=== PATIENT | female | born 1990 | race Caucasian/White ===

== ENCOUNTER 2017-05-18 07:16 | Inpatient (IN) | payer MEDICAID ==
[2017-05-18] MEDS ORDERED: Sodium Chloride 0.9% 10 ML Syringe FLUSH PRN (07:32)
[2017-05-18] MEDS ORDERED: Nalbuphine 20 MG/1 ML Amp IVPUSH PRN (07:32)
[2017-05-18] MEDS ORDERED: Ondansetron 4 MG/2 ML SDV IVPUSH PRN ×2 (07:32→15:31)
[2017-05-18] MEDS ORDERED: Ampicillin 2 GM in Sodium Chloride 0.9% 100 ML IV ONE (07:32)
--- NOTE | 2017-05-18 07:35 | PCM.LDHP ---
L&D History of Present Illness - General Date of Service: 05/18/17 Admit Problem/Dx: Patient Status Order with Admit Dx/Problem 05/18/17 07:33 Patient Status [ADT] Routine Admission Diagnosis/Problem Admission Diagnosis/Problem Normal Source of Information: Patient History Limitations: Reports: No Limitations - History of Present Illness Introduction:: Patient is 26 y/o who presents at 39 0/7 wks for IOL for dates. Doing well today. No specific concerns or complaints - Related Data Allergies/Adverse Reactions: Allergies Allergy/AdvReac Type Severity Reaction Status Date / Time No Known Allergies Allergy Verified 10/13/16 13:41 CDT Home Medications: Home Meds . 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 (Approximate): Social & Family History - Family History Family Medical History: Noncontributory - Tobacco Use Smoking Status *Q: Never Smoker - Caffeine Use Caffeine Use: Reports: None - Alcohol Use Alcohol Use History: No - Recreational Drug Use Recreational Drug Use: No H&P Review of Systems - Review of Systems: Review Of Systems: See Below General: Reports: No Symptoms Pulmonary: Reports: No Symptoms Cardiovascular: Reports: No Symptoms Gastrointestinal: Reports: No Symptoms Genitourinary: Reports: No Symptoms Musculoskeletal: Reports: No Symptoms Psychiatric: Reports: No Symptoms Neurological: Reports: No Symptoms L&D Exam - Exam Exam: See Below - OB Specific Contraction Intensity: Irritability Movement: Active Heart Tones: Present Heart Tones per Min: 140 Heart Rate (FHR) Variability: Moderate (6-25 bmp) Presentation: Vertex - Rose Score Rose Score Cervix Position: Posterior Rose Score Consistency: Soft Rose Score Effacement: 0-30% Rose Score Dilation: 1-2 cm Rose Score 's Station: -2 Rose Score Total: 4 - Exam General: Alert, Oriented, Cooperative Lungs: Clear to Auscultation, Normal Respiratory Effort Cardiovascular: Regular Rate, Regular Rhythm GI/Abdominal Exam: Soft, Non-Tender Genitourinary: Normal external exam Extremities: Normal Inspection Skin: Warm, Dry, Intact - Patient Data Result Diagrams: 05/18/17 07:51 - Problem List (1) 39 weeks gestation of SNOMED Code(s): 17373929 ICD Code: Z3A.39 - 39 WEEKS GESTATION OF Status: Acute Current Visit: Yes (2) GBS bacteriuria SNOMED Code(s): 73593859 ICD Code: R82.71 - BACTERIURIA Status: Acute Current Visit: Yes Problem List Initiated/Reviewed/Updated: Yes Orders Last 24hrs: Active Orders 24 hr Category Date Time Status Patient Status [ADT] Routine ADT 05/18/17 07:33 Ordered Communication Order [RC] ASDIRECTED Care 05/18/17 07:32 Ordered Communication Order [RC] ASDIRECTED Care 05/18/17 07:32 Ordered Communication Order [RC] ASDIRECTED Care 05/18/17 07:32 Ordered Heart Tones [RC] ASDIRECTED Care 05/18/17 07:33 Ordered Monitoring [RC] INTERMITTENT Care 05/18/17 07:32 Ordered Notify Provider [RC] ASDIRECTED Care 05/18/17 07:32 Ordered Notify Provider [RC] PRN Care 05/18/17 07:32 Ordered Peripheral IV Care [RC] . DIRECTED Care 05/18/17 07:33 Ordered Up ad Екатерина [RC] ASDIRECTED Care 05/18/17 07:33 Ordered Vaginal Exam [RC] ASDIRECTED Care 05/18/17 07:32 Ordered Vital Signs [RC] ASDIRECTED Care 05/18/17 07:32 Ordered Vital Signs [RC] PER UNIT ROUTINE Care 05/18/17 07:32 Ordered Regular Diet [DIET] Diet 05/18/17 Breakfast Ordered CBC W/O DIFF,HEMOGRAM [HEME] Routine Lab 05/18/17 07:32 Ordered TYPE AND SCREEN [BBK] Routine Lab 05/18/17 07:32 Ordered Ampicillin 1 gm Med 05/18/17 07:45 Ordered Sodium Chloride 0.9% [Normal Saline] 100 ml IV Q4H Ampicillin 2 gm Med 05/18/17 07:32 Ordered Sodium Chloride 0.9% [Normal Saline] 100 ml IV ONETIME Lactated Ringers [Ringers, Lactated] 1,000 ml Med 05/18/17 07:45 Ordered IV ASDIRECTED Nalbuphine [Nubain] Med 05/18/17 07:32 Ordered 10 mg IVPUSH Q2H PRN Ondansetron [Zofran] Med 05/18/17 07:32 Ordered 4 mg IVPUSH Q4H PRN Oxytocin/Lactated Ringers [Pitocin in LR 10 Units/1,000 Med 05/18/17 07:45 Ordered ML] 10 unit in 1,000 ml IV .CONTINUOUS Oxytocin/Lactated Ringers [Pitocin in LR 10 Units/1,000 Med 05/18/17 07:45 Ordered ML] 10 unit in 1,000 ml IV TITRATE Sodium Chloride 0.9% [Saline Flush] Med 05/18/17 07:32 Ordered 10 ml FLUSH ASDIRECTED PRN Electronic Heart Tones Ext w TOCO [WOMSER] Oth 05/18/17 07:32 Ordered Routine Electronic Heart Tones Internal [WOMSER] Per Unit Ot 05/18/17 07:32 Ordered Routine Peripheral IV Insertion Adult [OM.PC] Routine Ot 05/18/17 07:32 Ordered Resuscitation Status Routine Resus Stat 05/18/17 07:32 Ordered Assessment/Plan Comment:: Patient is a 26 y/o at 39 0/7 wks who presents for IOL given living 1.5 hours from hospital * CBC and T&S * GBS positive, will start Ampicillin * Pitocin for IOL with AROM when able * Pain management per patient preference * Anticipate
[2017-05-18] MEDS ORDERED: Oxytocin/Lactated Ringers 10 UNIT/1,000 ML BAG IV SCH ×2 (07:45)
[2017-05-18] MEDS: Lactated Ringers 1,000 ML IV SCH ×4 (08:20→19:46)
[2017-05-18] MEDS: Ampicillin 1 GM in Sodium Chloride 0.9% 100 ML IV SCH ×3 (11:45→19:33)
--- NOTE | 2017-05-18 15:30 | PCM.PREANE ---
Preanesthetic Assessment - Procedure Proposed Procedure: YOSHI - Anesthesia/Transfusion/Family Hx Anesthesia History: Prior Anesthesia Without Reaction Family History of Anesthesia Reaction: No Transfusion History: No Prior Transfusion(s) - Review of Systems General: No Symptoms Pulmonary: No Symptoms Cardiovascular: No Symptoms Gastrointestinal: No Symptoms Neurological: No Symptoms Other: Reports: None - Physical Assessment NPO Status Date: 05/18/17 NPO Status Time: 13:00 O2 Sat by Pulse Oximetry: 100 Respiratory Rate: 15 Vital Signs: Last Vital Signs Temp 36.1 C 05/18/17 07:32 Pulse 81 05/18/17 07:32 Resp 15 05/18/17 07:32 BP 116/69 05/18/17 07:32 Pulse Ox 100 05/18/17 07:32 Height: 1.6 m Weight: 72.529 kg ASA Class: 2 Mental Status: Alert & Oriented x3 Airway Class: Mallampati = 1 Dentition: Reports: Normal Dentition Thyro-Mental Finger Breadths: 3 Mouth Opening Finger Breadths: 3 ROM/Head Extension: Full Lungs: Clear to Auscultation, Normal Respiratory Effort Cardiovascular: Regular Rate, Regular Rhythm - Lab Values: Laboratory Last Values WBC 6.50 K/mm3 (3.98-10.04) 05/18/17 07:51 RBC 4.02 M/mm3 (3.98-5.22) 05/18/17 07:51 Hgb 11.2 gm/L (11.2-15.7) 05/18/17 07:51 Hct 34.0 % (34.1-44.9) L 05/18/17 07:51 MCV 84.6 fl (79.4-94.8) 05/18/17 07:51 MCH 27.9 pg (25.6-32.2) 05/18/17 07:51 MCHC 32.9 g/dl (32.2-35.5) 05/18/17 07:51 RDW Std Deviation 49.3 fL (36.4-46.3) H 05/18/17 07:51 Plt Count 165 K/mm3 (182-369) L 05/18/17 07:51 MPV 11.1 fl (9.4-12.3) 05/18/17 07:51 Blood Type B POSITIVE 05/18/17 07:51 Gel Antibody Screen Negative 05/18/17 07:51 - Allergies Allergies/Adverse Reactions: Allergies Allergy/AdvReac Type Severity Reaction Status Date / Time No Known Allergies Allergy Verified 10/13/16 13:41 CDT - Blood Blood Available: No Product(s) Available: None - Anesthesia Plan Pre-Op Medication Ordered: None - Acknowledgements Anesthesia Type Planned: Epidural Pt an Appropriate Candidate for the Planned Anesthesia: Yes Alternatives and Risks of Anesthesia Discussed w Pt/Guardian: Yes Pt/Guardian Understands and Agrees with Anesthesia Plan: Yes PreAnesthesia Questionnaire - Past Health History Medical/Surgical History: Denies 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 [No Known Home Meds] 10/13/16 [History] - CURRENT (IN HOUSE) MEDS Current Meds: Current Medications Ampicillin Sodium 1 gm/ Sodium (Chloride) 100 mls @ 200 mls/hr IV Q4H ISRA Last Admin: 05/18/17 15:25 Dose: 200 mls/hr Lactated Ringer's (Ringers, Lactated) 1,000 mls @ 40 mls/hr IV ASDIRECTED ISRA Last Admin: 05/18/17 15:27 Dose: 40 mls/hr Oxytocin/Lactated Ringer's (Pitocin In Lr 10 Units/1,000 Ml) 10 unit in 1,000 mls @ 12 mls/hr IV TITRATE ISRA; 2 MUNITS/MIN PRN Reason: Protocol Last Titration: 05/18/17 15:04 Dose: 6 munits/min, 36 mls/hr Oxytocin/Lactated Ringer's (Pitocin In Lr 10 Units/1,000 Ml) 10 unit in 1,000 mls @ 500 mls/hr IV .CONTINUOUS ISRA Nalbuphine HCl (Nubain) 10 mg IVPUSH Q2H PRN PRN Reason: Pain (moderate 4-6) Ondansetron HCl (Zofran) 4 mg IVPUSH Q4H PRN PRN Reason: Nausea/Vomiting Sodium Chloride (Saline Flush) 10 ml FLUSH ASDIRECTED PRN PRN Reason: Keep Vein Open Discontinued Medications Ampicillin Sodium 2 gm/ Sodium (Chloride) 100 mls @ 200 mls/hr IV ONETIME ONE Stop: 05/18/17 08:01 Last Admin: 05/18/17 08:21 Dose: 200 mls/hr
[2017-05-18] MEDS ORDERED: fentaNYL 100 MCG/2 ML SDV EPIDUR PRN (15:31)
[2017-05-18] MEDS ORDERED: ePHEDrine 50 MG/ML SDV IVPUSH PRN (15:31)
[2017-05-18] MEDS ORDERED: diphenhydrAMINE 50 MG/ML SDV IVPUSH PRN (15:31)
[2017-05-18] MEDS ORDERED: Bupivacaine/fentaNYL/NS 100 ML Bag EPIDUR SCH (15:45)
--- NOTE | 2017-05-18 19:15 | PCM.PNLD ---
Labor Progress Note - VS & Meds Vital Signs: Last Vital Signs Temp 36.1 C 05/18/17 07:32 Pulse 81 05/18/17 07:32 Resp 15 05/18/17 15:30 BP 116/69 05/18/17 07:32 Pulse Ox 100 05/18/17 15:30 Active Medications: Current Medications Diphenhydramine HCl (Benadryl) 25 mg IVPUSH Q6H PRN PRN Reason: Pruritis Ephedrine Sulfate (Ephedrine Sulfate) 5 mg IVPUSH ASDIRECTED PRN PRN Reason: Hypotension Fentanyl (Sublimaze) 100 mcg EPIDUR Q3H PRN PRN Reason: Pain Last Admin: 05/18/17 16:32 Dose: 100 mcg Fentanyl/Bupivacaine HCl (Fentanyl/Bupivacaine/Ns 2 Mcg-0.125% 100 Ml) 100 ml EPIDUR ASDIRECTED ISRA Last Admin: 05/18/17 16:33 Dose: 100 ml Ampicillin Sodium 1 gm/ Sodium (Chloride) 100 mls @ 200 mls/hr IV Q4H ISRA Last Admin: 05/18/17 15:25 Dose: 200 mls/hr Lactated Ringer's (Ringers, Lactated) 1,000 mls @ 40 mls/hr IV ASDIRECTED ISRA Last Admin: 05/18/17 17:03 Dose: 40 mls/hr Oxytocin/Lactated Ringer's (Pitocin In Lr 10 Units/1,000 Ml) 10 unit in 1,000 mls @ 12 mls/hr IV TITRATE ISRA; 2 MUNITS/MIN PRN Reason: Protocol Last Titration: 05/18/17 16:40 Dose: 2 munits/min, 12 mls/hr Oxytocin/Lactated Ringer's (Pitocin In Lr 10 Units/1,000 Ml) 10 unit in 1,000 mls @ 500 mls/hr IV .CONTINUOUS ISRA Nalbuphine HCl (Nubain) 10 mg IVPUSH Q2H PRN PRN Reason: Pain (moderate 4-6) Ondansetron HCl (Zofran) 4 mg IVPUSH Q4H PRN PRN Reason: Nausea/Vomiting Ondansetron HCl (Zofran) 4 mg IVPUSH ONETIME PRN PRN Reason: Nausea/Vomiting Sodium Chloride (Saline Flush) 10 ml FLUSH ASDIRECTED PRN PRN Reason: Keep Vein Open Discontinued Medications Ampicillin Sodium 2 gm/ Sodium (Chloride) 100 mls @ 200 mls/hr IV ONETIME ONE Stop: 05/18/17 08:01 Last Admin: 05/18/17 08:21 Dose: 200 mls/hr - Uterine Contractions Uterine Monitoring Mode: External [place] Contraction Intensity: Mild - Monitoring Monitor Mode: External Ultrasound Heart Rate (FHR) Baseline: 140 Heart Rate (FHR) Variability: Moderate (6-25 bmp) Accelerations: Present, 15x15 Decelerations: None Strip Review: Category I - Vaginal Exam Dilation (cm): 2 Effacement (Percent): 25 Station: -1 Cervical Position: Posterior - Labor Progress (Free Text) Labor Progress: Doing well. On 6 of pitocin. AROM performed with release of large amount of clear fluid. Continue present management.
--- NOTE | 2017-05-18 19:18 | PCM.PNLD ---
Labor Progress Note - VS & Meds Vital Signs: Last Vital Signs Temp 36.1 C 05/18/17 07:32 Pulse 81 05/18/17 07:32 Resp 15 05/18/17 15:30 BP 116/69 05/18/17 07:32 Pulse Ox 100 05/18/17 15:30 Active Medications: Current Medications Diphenhydramine HCl (Benadryl) 25 mg IVPUSH Q6H PRN PRN Reason: Pruritis Ephedrine Sulfate (Ephedrine Sulfate) 5 mg IVPUSH ASDIRECTED PRN PRN Reason: Hypotension Fentanyl (Sublimaze) 100 mcg EPIDUR Q3H PRN PRN Reason: Pain Last Admin: 05/18/17 16:32 Dose: 100 mcg Fentanyl/Bupivacaine HCl (Fentanyl/Bupivacaine/Ns 2 Mcg-0.125% 100 Ml) 100 ml EPIDUR ASDIRECTED ISRA Last Admin: 05/18/17 16:33 Dose: 100 ml Ampicillin Sodium 1 gm/ Sodium (Chloride) 100 mls @ 200 mls/hr IV Q4H ISRA Last Admin: 05/18/17 15:25 Dose: 200 mls/hr Lactated Ringer's (Ringers, Lactated) 1,000 mls @ 40 mls/hr IV ASDIRECTED ISRA Last Admin: 05/18/17 17:03 Dose: 40 mls/hr Oxytocin/Lactated Ringer's (Pitocin In Lr 10 Units/1,000 Ml) 10 unit in 1,000 mls @ 12 mls/hr IV TITRATE ISRA; 2 MUNITS/MIN PRN Reason: Protocol Last Titration: 05/18/17 16:40 Dose: 2 munits/min, 12 mls/hr Oxytocin/Lactated Ringer's (Pitocin In Lr 10 Units/1,000 Ml) 10 unit in 1,000 mls @ 500 mls/hr IV .CONTINUOUS ISRA Nalbuphine HCl (Nubain) 10 mg IVPUSH Q2H PRN PRN Reason: Pain (moderate 4-6) Ondansetron HCl (Zofran) 4 mg IVPUSH Q4H PRN PRN Reason: Nausea/Vomiting Ondansetron HCl (Zofran) 4 mg IVPUSH ONETIME PRN PRN Reason: Nausea/Vomiting Sodium Chloride (Saline Flush) 10 ml FLUSH ASDIRECTED PRN PRN Reason: Keep Vein Open Discontinued Medications Ampicillin Sodium 2 gm/ Sodium (Chloride) 100 mls @ 200 mls/hr IV ONETIME ONE Stop: 05/18/17 08:01 Last Admin: 05/18/17 08:21 Dose: 200 mls/hr - Uterine Contractions Uterine Monitoring Mode: External [place] Contraction Intensity: Mild - Monitoring Monitor Mode: External Ultrasound Heart Rate (FHR) Baseline: 140 Heart Rate (FHR) Variability: Moderate (6-25 bmp) Accelerations: Absent Decelerations: Variable Strip Review: Category II - Vaginal Exam Dilation (cm): 3-4 Effacement (Percent): 75 Vaginal Exam Comment: Done by nursing at 1600 - Labor Progress (Free Text) Labor Progress: Doing well. Comfortable with epidural in place. Will have nursing decrease pitocin to 2 given present of some variables
--- NOTE | 2017-05-18 19:20 | PCM.PNLD ---
Labor Progress Note - VS & Meds Vital Signs: Last Vital Signs Temp 36.1 C 05/18/17 07:32 Pulse 81 05/18/17 07:32 Resp 15 05/18/17 15:30 BP 116/69 05/18/17 07:32 Pulse Ox 100 05/18/17 15:30 Active Medications: Current Medications Diphenhydramine HCl (Benadryl) 25 mg IVPUSH Q6H PRN PRN Reason: Pruritis Ephedrine Sulfate (Ephedrine Sulfate) 5 mg IVPUSH ASDIRECTED PRN PRN Reason: Hypotension Fentanyl (Sublimaze) 100 mcg EPIDUR Q3H PRN PRN Reason: Pain Last Admin: 05/18/17 16:32 Dose: 100 mcg Fentanyl/Bupivacaine HCl (Fentanyl/Bupivacaine/Ns 2 Mcg-0.125% 100 Ml) 100 ml EPIDUR ASDIRECTED ISRA Last Admin: 05/18/17 16:33 Dose: 100 ml Ampicillin Sodium 1 gm/ Sodium (Chloride) 100 mls @ 200 mls/hr IV Q4H ISRA Last Admin: 05/18/17 15:25 Dose: 200 mls/hr Lactated Ringer's (Ringers, Lactated) 1,000 mls @ 40 mls/hr IV ASDIRECTED ISRA Last Admin: 05/18/17 17:03 Dose: 40 mls/hr Oxytocin/Lactated Ringer's (Pitocin In Lr 10 Units/1,000 Ml) 10 unit in 1,000 mls @ 12 mls/hr IV TITRATE ISRA; 2 MUNITS/MIN PRN Reason: Protocol Last Titration: 05/18/17 16:40 Dose: 2 munits/min, 12 mls/hr Oxytocin/Lactated Ringer's (Pitocin In Lr 10 Units/1,000 Ml) 10 unit in 1,000 mls @ 500 mls/hr IV .CONTINUOUS ISRA Nalbuphine HCl (Nubain) 10 mg IVPUSH Q2H PRN PRN Reason: Pain (moderate 4-6) Ondansetron HCl (Zofran) 4 mg IVPUSH Q4H PRN PRN Reason: Nausea/Vomiting Ondansetron HCl (Zofran) 4 mg IVPUSH ONETIME PRN PRN Reason: Nausea/Vomiting Sodium Chloride (Saline Flush) 10 ml FLUSH ASDIRECTED PRN PRN Reason: Keep Vein Open Discontinued Medications Ampicillin Sodium 2 gm/ Sodium (Chloride) 100 mls @ 200 mls/hr IV ONETIME ONE Stop: 05/18/17 08:01 Last Admin: 05/18/17 08:21 Dose: 200 mls/hr - Uterine Contractions Uterine Monitoring Mode: External [place] Contraction Intensity: Moderate to Strong - Monitoring Monitor Mode: External Ultrasound Heart Rate (FHR) Baseline: 135 Heart Rate (FHR) Variability: Moderate (6-25 bmp) Accelerations: Absent Decelerations: Late, Variable, Intermittent (<50% x 20 min) Strip Review: Category II - Vaginal Exam Dilation (cm): 6 Effacement (Percent): 80 Station: 0 Cervical Position: Anterior - Labor Progress (Free Text) Labor Progress: Patient with a run of what appear to be late decelerations although difficult to say given contractions not easily appreciated. Ordered pitocin to be stopped. (only at 2). IUPC placed. Patient 6 cm and with good bloody show. Will continue to monitor closely. Anticipate
--- NOTE | 2017-05-18 21:46 | PCM.DEL ---
L & D Note - General Info Date of Service: 05/18/17 - Delivery Note Labor: Induced by ARM, Induced by Oxytocin Delivery Outcome: Livebirth Infant Delivery Method: Spontaneous Vaginal Delivery-Single Infant Delivery Mode: Spontaneous Presentation: Left Occiput Anterior (MEL) Nuchal Cord: Present, Reduced Anesthesia Type: Epidural Amniotic Fluid Description: Meconium Stained (Note noted until after delivery of head) Episiotomy Type: None Laceration: None Placenta: Intact, Spontaneous Cord: 3 Vessels Estimated Blood Loss: 200 Resuscitation Needed: Yes [place]: Suctioned, Bulb Syringe, Stimulated, Warmed, [place] Used Score 1 min: 8 Score 5 min: 9 Delivery Comments (Free Text/Narrative):: Patient found to be complete and began pushing. With maternal pushing effort head delivered from an MEL presentation. Tight nuchal cord present and reduced. With gentle downward traction the shoulders and body delivered. placed on maternal abdomen. Cord clamped and cut. Cord blood obtained. Placenta allowed time to separate and expelled intact. Inspection of the perineum showed no lacerations - Patient Data Vitals - Most Recent: Last Vital Signs Temp 36.1 C 05/18/17 07:32 Pulse 81 05/18/17 07:32 Resp 15 05/18/17 15:30 BP 116/69 05/18/17 07:32 Pulse Ox 100 05/18/17 15:30 Weight - Most Recent: 72.529 kg I&O - Last 24 Hours: Intake & Output 05/18/17 05/18/17 05/18/17 06:59 14:59 22:59 Intake Total 3300 Balance 3300 Lab Results Last 24 Hours: Laboratory Results - last 24 hr 05/18/17 05/18/17 Range/Units 07:51 07:51 WBC 6.50 (3.98-10.04) K/mm3 RBC 4.02 (3.98-5.22) M/mm3 Hgb 11.2 (11.2-15.7) gm/L Hct 34.0 L (34.1-44.9) % MCV 84.6 (79.4-94.8) fl MCH 27.9 (25.6-32.2) pg MCHC 32.9 (32.2-35.5) g/dl RDW Std Deviation 49.3 H (36.4-46.3) fL Plt Count 165 L (182-369) K/mm3 MPV 11.1 (9.4-12.3) fl Blood Type B POSITIVE Gel Antibody Screen Negative Med Orders - Current: Current Medications Diphenhydramine HCl (Benadryl) 25 mg IVPUSH Q6H PRN PRN Reason: Pruritis Ephedrine Sulfate (Ephedrine Sulfate) 5 mg IVPUSH ASDIRECTED PRN PRN Reason: Hypotension Fentanyl (Sublimaze) 100 mcg EPIDUR Q3H PRN PRN Reason: Pain Last Admin: 05/18/17 16:32 Dose: 100 mcg Fentanyl/Bupivacaine HCl (Fentanyl/Bupivacaine/Ns 2 Mcg-0.125% 100 Ml) 100 ml EPIDUR ASDIRECTED ISRA Last Admin: 05/18/17 16:33 Dose: 100 ml Ampicillin Sodium 1 gm/ Sodium (Chloride) 100 mls @ 200 mls/hr IV Q4H ISRA Last Admin: 05/18/17 19:33 Dose: 200 mls/hr Lactated Ringer's (Ringers, Lactated) 1,000 mls @ 40 mls/hr IV ASDIRECTED ISRA Last Admin: 05/18/17 19:46 Dose: 40 mls/hr Oxytocin/Lactated Ringer's (Pitocin In Lr 10 Units/1,000 Ml) 10 unit in 1,000 mls @ 12 mls/hr IV TITRATE ISRA; 2 MUNITS/MIN PRN Reason: Protocol Last Titration: 05/18/17 19:01 Dose: 0 munits/min, 0 mls/hr Oxytocin/Lactated Ringer's (Pitocin In Lr 10 Units/1,000 Ml) 10 unit in 1,000 mls @ 500 mls/hr IV .CONTINUOUS ISRA Nalbuphine HCl (Nubain) 10 mg IVPUSH Q2H PRN PRN Reason: Pain (moderate 4-6) Ondansetron HCl (Zofran) 4 mg IVPUSH Q4H PRN PRN Reason: Nausea/Vomiting Ondansetron HCl (Zofran) 4 mg IVPUSH ONETIME PRN PRN Reason: Nausea/Vomiting Sodium Chloride (Saline Flush) 10 ml FLUSH ASDIRECTED PRN PRN Reason: Keep Vein Open Discontinued Medications Ampicillin Sodium 2 gm/ Sodium (Chloride) 100 mls @ 200 mls/hr IV ONETIME ONE Stop: 05/18/17 08:01 Last Admin: 05/18/17 08:21 Dose: 200 mls/hr - Problem List & Annotations (1) 39 weeks gestation of SNOMED Code(s): 79300055 Code(s): Z3A.39 - 39 WEEKS GESTATION OF Status: Acute Current Visit: Yes (2) GBS bacteriuria SNOMED Code(s): 83245898 Code(s): R82.71 - BACTERIURIA Status: Acute Current Visit: Yes (3) Vaginal delivery SNOMED Code(s): 571933001 Code(s): O80 - ENCOUNTER FOR FULL-TERM UNCOMPLICATED DELIVERY Status: Acute Current Visit: Yes - Problem List Review Problem List Initiated/Reviewed/Updated: Yes - My Orders Last 24 Hours: My Active Orders 05/18/17 07:32 Communication Order [RC] ASDIRECTED Communication Order [RC] ASDIRECTED Communication Order [RC] ASDIRECTED Notify Provider [RC] ASDIRECTED Notify Provider [RC] PRN Vital Signs [RC] PER UNIT ROUTINE Nalbuphine [Nubain] 10 mg IVPUSH Q2H PRN Ondansetron [Zofran] 4 mg IVPUSH Q4H PRN Sodium Chloride 0.9% [Saline Flush] 10 ml FLUSH ASDIRECTED PRN Electronic Heart Tones Ext w TOCO [WOMSER] Routine Electronic Heart Tones Internal [WOMSER] Per Unit Routine Peripheral IV Insertion Adult [OM.PC] Routine Resuscitation Status Routine 05/18/17 07:33 Patient Status [ADT] Routine Up ad Екатерина [RC] ASDIRECTED 05/18/17 07:45 Lactated Ringers [Ringers, Lactated] 1,000 ml IV ASDIRECTED Oxytocin/Lactated Ringers [Pitocin in LR 10 Units/1,000 ML] 10 unit in 1,000 ml IV .CONTINUOUS Oxytocin/Lactated Ringers [Pitocin in LR 10 Units/1,000 ML] 10 unit in 1,000 ml IV TITRATE 05/18/17 11:30 Ampicillin 1 gm Sodium Chloride 0.9% [Normal Saline] 100 ml IV Q4H 05/18/17 21:41 Patient Status Manage Transfer [TRANSFER] Routine 05/18/17 Breakfast Regular Diet [DIET] - Assessment Assessment:: Patient is a 26 y/o G2 now P2002 PPD#0 from at 39 0/7 wks - Plan Plan:: * Routine cares * Encourage breast feeding * Discharge home in 1-2 days
[2017-05-18] MEDS ORDERED: Docusate Sodium 100 MG Cap PO PRN (22:19)
[2017-05-18] MEDS ORDERED: Lanolin 100% Cream 7 GM Tube TOP PRN (22:19)
[2017-05-18] MEDS ORDERED: Witch Hazel Medicated Pads 100/Jar TOP PRN (22:19)
[2017-05-18] MEDS ORDERED: Benzocaine/Menthol 20%-0.5% Spray 56 GM Canister TOP PRN (22:19)
[2017-05-18] MEDS ORDERED: Acetaminophen 325 MG Tab PO PRN (22:19)
[2017-05-18] MEDS ORDERED: Bupivacaine 0.25% 10 ML SDV ONE (22:22)
[2017-05-18] MEDS: Ibuprofen 600 MG Tab PO PRN (23:03)
--- NOTE | 2017-05-19 07:33 | PCM.PNPP ---
- General Info Date of Service: 05/19/17 Functional Status: Reports: Pain Controlled, Tolerating Diet, Ambulating, Urinating - Review of Systems General: Reports: No Symptoms Pulmonary: Reports: No Symptoms Cardiovascular: Reports: No Symptoms Gastrointestinal: Reports: No Symptoms Genitourinary: Reports: No Symptoms - Patient Data Vital Signs - Most Recent: Last Vital Signs Temp 36.2 C 05/19/17 03:27 Pulse 57 L 05/19/17 03:27 Resp 14 05/19/17 03:27 BP 114/71 05/19/17 03:27 Pulse Ox 98 05/19/17 03:27 Weight - Most Recent: 72.529 kg I&O - Last 24 Hours: Intake & Output 05/18/17 05/19/17 05/19/17 22:59 06:59 14:59 Intake Total 5300 Balance 5300 Lab Results - Last 24 Hours: Laboratory Results - last 24 hr 05/18/17 05/18/17 Range/Units 07:51 07:51 WBC 6.50 (3.98-10.04) K/mm3 RBC 4.02 (3.98-5.22) M/mm3 Hgb 11.2 (11.2-15.7) gm/L Hct 34.0 L (34.1-44.9) % MCV 84.6 (79.4-94.8) fl MCH 27.9 (25.6-32.2) pg MCHC 32.9 (32.2-35.5) g/dl RDW Std Deviation 49.3 H (36.4-46.3) fL Plt Count 165 L (182-369) K/mm3 MPV 11.1 (9.4-12.3) fl Blood Type B POSITIVE Gel Antibody Screen Negative Med Orders - Current: Current Medications Acetaminophen (Tylenol) 650 mg PO Q4H PRN PRN Reason: mild pain or fever Benzocaine/Menthol (Dermoplast Pain Relief [place]) 0 gm TOP ASDIRECTED PRN PRN Reason: Perineal Comfort Measure Docusate Sodium (Colace) 100 mg PO BID PRN PRN Reason: Constipation Emollient Ointment (Lansinoh Hpa) 0 gm TOP ASDIRECTED PRN PRN Reason: Sore Nipples Ibuprofen (Motrin) 600 mg PO Q6H PRN PRN Reason: Mild pain or fever Last Admin: 05/18/17 23:03 Dose: 600 mg Witch [place] (Tucks) 1 pad TOP ASDIRECTED PRN PRN Reason: Hemorrhoid pain Discontinued Medications Diphenhydramine HCl (Benadryl) 25 mg IVPUSH Q6H PRN PRN Reason: Pruritis Ephedrine Sulfate (Ephedrine Sulfate) 5 mg IVPUSH ASDIRECTED PRN PRN Reason: Hypotension Fentanyl (Sublimaze) 100 mcg EPIDUR Q3H PRN PRN Reason: Pain Last Admin: 05/18/17 16:32 Dose: 100 mcg Fentanyl/Bupivacaine HCl (Fentanyl/Bupivacaine/Ns 2 Mcg-0.125% 100 Ml) 100 ml EPIDUR ASDIRECTED ISRA Last Admin: 05/18/17 16:33 Dose: 100 ml Ampicillin Sodium 2 gm/ Sodium (Chloride) 100 mls @ 200 mls/hr IV ONETIME ONE Stop: 05/18/17 08:01 Last Admin: 05/18/17 08:21 Dose: 200 mls/hr Ampicillin Sodium 1 gm/ Sodium (Chloride) 100 mls @ 200 mls/hr IV Q4H ISRA Last Admin: 05/18/17 19:33 Dose: 200 mls/hr Lactated Ringer's (Ringers, Lactated) 1,000 mls @ 40 mls/hr IV ASDIRECTED ISRA Last Admin: 05/18/17 19:46 Dose: 40 mls/hr Oxytocin/Lactated Ringer's (Pitocin In Lr 10 Units/1,000 Ml) 10 unit in 1,000 mls @ 12 mls/hr IV TITRATE ISRA; 2 MUNITS/MIN PRN Reason: Protocol Last Titration: 05/18/17 21:26 Dose: 999 mls/hr Oxytocin/Lactated Ringer's (Pitocin In Lr 10 Units/1,000 Ml) 10 unit in 1,000 mls @ 500 mls/hr IV .CONTINUOUS ISRA Nalbuphine HCl (Nubain) 10 mg IVPUSH Q2H PRN PRN Reason: Pain (moderate 4-6) Ondansetron HCl (Zofran) 4 mg IVPUSH Q4H PRN PRN Reason: Nausea/Vomiting Ondansetron HCl (Zofran) 4 mg IVPUSH ONETIME PRN PRN Reason: Nausea/Vomiting Sodium Chloride (Saline Flush) 10 ml FLUSH ASDIRECTED PRN PRN Reason: Keep Vein Open - Infant Interaction Disposition, : [place] in Room with Family Infant Interaction: Holding Infant Feeding: Breastfed Infant; Nursed Well Support Person: - Recovery Exam Fundal Tone: Firm Fundal Level: At Umbilicus Fundal Placement: Midline Lochia Amount: Small Lochia Color: Rubra/Red Perineum Description: Intact, Minimal Bruising/Swelling Episiotomy/Laceration: None Bladder Status: Voiding Urinary Elimination: Voided - Exam General: Alert, Oriented, Cooperative GI/Abdominal Exam: Soft, Non-Tender Extremities: Normal Inspection Skin: Warm, Dry, Intact - Problem List & Annotations (1) 39 weeks gestation of SNOMED Code(s): 82649432 Code(s): Z3A.39 - 39 WEEKS GESTATION OF Status: Acute Current Visit: Yes (2) GBS bacteriuria SNOMED Code(s): 17064557 Code(s): R82.71 - BACTERIURIA Status: Acute Current Visit: Yes (3) Vaginal delivery SNOMED Code(s): 897928977 Code(s): O80 - ENCOUNTER FOR FULL-TERM UNCOMPLICATED DELIVERY Status: Acute Current Visit: Yes - Problem List Review Problem List Initiated/Reviewed/Updated: Yes - My Orders Last 24 Hours: My Active Orders 05/18/17 07:32 Resuscitation Status Routine 05/18/17 22:19 Activity as Tolerated [RC] PER UNIT ROUTINE Vital Signs [RC] 04,12,20 Acetaminophen [Tylenol] 650 mg PO Q4H PRN Benzocaine/Menthol [Dermoplast Pain Relief [place]] See Dose Instructions TOP ASDIRECTED PRN Docusate Sodium [Colace] 100 mg PO BID PRN Ibuprofen [Motrin] 600 mg PO Q6H PRN Lanolin [Lansinoh HPA] See Dose Instructions TOP ASDIRECTED PRN Witch [place]ola [Tucks] 1 pad TOP ASDIRECTED PRN Assess Lochia [WOMSER] Per Unit Routine Assess Uterine Involution [WOMSER] Per Unit Routine Breast Pump [WOMSER] Per Unit Routine Heat Therapy [OM.PC] PRN Ice Therapy [OM.PC] Per Unit Routine Perineal Care [OM.PC] Per Unit Routine Peripheral IV Discontinue [OM.PC] Routine Sitz Bath [OM.PC] Per Unit Routine 05/18/17 Dinner Regular Diet [DIET] 05/19/17 22:19 Heat Therapy [OM.PC] PRN - Assessment Assessment:: Patient is a 26 y/o G2 now P2002 PPD#1 from at 39 0/7 wks - Plan Plan:: * Routine cares * Encourage breast feeding * Discharge home tomorrow
--- NOTE | 2017-05-19 08:47 | PCM48HPAN ---
Post Anesthesia Note - EVALUATION WITHIN 48HRS OF ANESTHETIC Vital Signs in Normal Range: Yes Patient Participated in Evaluation: Yes Respiratory Function Stable: Yes Airway Patent: Yes Cardiovascular Function Stable: Yes Hydration Status Stable: Yes Pain Control Satisfactory: Yes Nausea and Vomiting Control Satisfactory: Yes Mental Status Recovered: Yes (very happy with epidural) Pulse Rate: 57 Resp Rate: 14 Temperature: 97.2 F Blood Pressure: 114/71
[2017-05-19] MEDS: Ibuprofen 600 MG Tab PO PRN ×2 (09:41→19:35)
[2017-05-20 02:27] VITALS: BP 114/68
--- NOTE | 2017-05-20 05:03 | PCM.PNPP ---
- General Info Date of Service: 05/20/17 Functional Status: Reports: Pain Controlled, Tolerating Diet, Ambulating, Urinating - Review of Systems General: Reports: No Symptoms Pulmonary: Reports: No Symptoms Cardiovascular: Reports: No Symptoms Gastrointestinal: Reports: No Symptoms Genitourinary: Reports: No Symptoms Musculoskeletal: Reports: No Symptoms - Patient Data Vital Signs - Most Recent: Last Vital Signs Temp 36.7 C 05/20/17 02:22 Pulse 64 05/20/17 02:22 Resp 18 05/20/17 02:22 BP 114/68 05/20/17 02:22 Pulse Ox 98 05/20/17 02:22 Weight - Most Recent: 72.529 kg I&O - Last 24 Hours: Intake & Output 05/19/17 05/19/17 05/20/17 14:59 22:59 06:59 Intake Total 240 Balance 240 Med Orders - Current: Current Medications Acetaminophen (Tylenol) 650 mg PO Q4H PRN PRN Reason: mild pain or fever Benzocaine/Menthol (Dermoplast Pain Relief [place]) 0 gm TOP ASDIRECTED PRN PRN Reason: Perineal Comfort Measure Docusate Sodium (Colace) 100 mg PO BID PRN PRN Reason: Constipation Emollient Ointment (Lansinoh Hpa) 0 gm TOP ASDIRECTED PRN PRN Reason: Sore Nipples Ibuprofen (Motrin) 600 mg PO Q6H PRN PRN Reason: Mild pain or fever Last Admin: 05/19/17 19:35 Dose: 600 mg Witch [place] (Tucks) 1 pad TOP ASDIRECTED PRN PRN Reason: Hemorrhoid pain Discontinued Medications Bupivacaine HCl (Sensorcaine-Mpf 0.25%) 10 ml .ROUTE .STK-MED ONE Stop: 05/18/17 22:23 Diphenhydramine HCl (Benadryl) 25 mg IVPUSH Q6H PRN PRN Reason: Pruritis Ephedrine Sulfate (Ephedrine Sulfate) 5 mg IVPUSH ASDIRECTED PRN PRN Reason: Hypotension Fentanyl (Sublimaze) 100 mcg EPIDUR Q3H PRN PRN Reason: Pain Last Admin: 05/18/17 16:32 Dose: 100 mcg Fentanyl/Bupivacaine HCl (Fentanyl/Bupivacaine/Ns 2 Mcg-0.125% 100 Ml) 100 ml EPIDUR ASDIRECTED ISRA Last Admin: 05/18/17 16:33 Dose: 100 ml Ampicillin Sodium 2 gm/ Sodium (Chloride) 100 mls @ 200 mls/hr IV ONETIME ONE Stop: 05/18/17 08:01 Last Admin: 05/18/17 08:21 Dose: 200 mls/hr Ampicillin Sodium 1 gm/ Sodium (Chloride) 100 mls @ 200 mls/hr IV Q4H ISRA Last Admin: 05/18/17 19:33 Dose: 200 mls/hr Lactated Ringer's (Ringers, Lactated) 1,000 mls @ 40 mls/hr IV ASDIRECTED ISRA Last Admin: 05/18/17 19:46 Dose: 40 mls/hr Oxytocin/Lactated Ringer's (Pitocin In Lr 10 Units/1,000 Ml) 10 unit in 1,000 mls @ 12 mls/hr IV TITRATE ISRA; 2 MUNITS/MIN PRN Reason: Protocol Last Titration: 05/18/17 21:26 Dose: 999 mls/hr Oxytocin/Lactated Ringer's (Pitocin In Lr 10 Units/1,000 Ml) 10 unit in 1,000 mls @ 500 mls/hr IV .CONTINUOUS ISRA Nalbuphine HCl (Nubain) 10 mg IVPUSH Q2H PRN PRN Reason: Pain (moderate 4-6) Ondansetron HCl (Zofran) 4 mg IVPUSH Q4H PRN PRN Reason: Nausea/Vomiting Ondansetron HCl (Zofran) 4 mg IVPUSH ONETIME PRN PRN Reason: Nausea/Vomiting Sodium Chloride (Saline Flush) 10 ml FLUSH ASDIRECTED PRN PRN Reason: Keep Vein Open - Infant Interaction Infant Disposition, : [place] in Room with Family Interaction: Holding Infant Infant Feeding: Breastfed ; Nursed Well Support Person: - Recovery Exam Fundal Tone: Firm Fundal Level: 1 Fingerbreadths Below Umbilicus Fundal Placement: Midline Lochia Amount: Small Lochia Color: Rubra/Red Perineum Description: Intact, Minimal Bruising/Swelling Episiotomy/Laceration: None Bladder Status: Voiding Urinary Elimination: Voided - Exam General: Alert, Oriented, Cooperative GI/Abdominal Exam: Soft, Non-Tender Extremities: Normal Inspection Skin: Warm, Dry, Intact - Problem List & Annotations (1) 39 weeks gestation of SNOMED Code(s): 24600667 Code(s): Z3A.39 - 39 WEEKS GESTATION OF Status: Acute Current Visit: Yes (2) GBS bacteriuria SNOMED Code(s): 44949463 Code(s): R82.71 - BACTERIURIA Status: Acute Current Visit: Yes (3) Vaginal delivery SNOMED Code(s): 207707050 Code(s): O80 - ENCOUNTER FOR FULL-TERM UNCOMPLICATED DELIVERY Status: Acute Current Visit: Yes - Problem List Review Problem List Initiated/Reviewed/Updated: Yes - My Orders Last 24 Hours: My Active Orders 05/19/17 22:19 Heat Therapy [OM.PC] PRN - Assessment Assessment:: Patient is a 26 y/o G2 now P2002 PPD#2 from at 39 0/7 wks - Plan Plan:: * Routine cares * Encourage breast feeding * Discharge home today
--- NOTE | 2017-05-20 05:04 | PCM.DCSUM1 ---
Discharge Summary - Discharge Data Discharge Date: 05/20/17 Discharge Disposition: Home, Self-Care 01 Condition: Good - Discharge Diagnosis/Problem(s) (1) 39 weeks gestation of SNOMED Code(s): 83039464 ICD Code: Z3A.39 - 39 WEEKS GESTATION OF Status: Acute Current Visit: Yes (2) GBS bacteriuria SNOMED Code(s): 99269832 ICD Code: R82.71 - BACTERIURIA Status: Acute Current Visit: Yes (3) Vaginal delivery SNOMED Code(s): 460185105 ICD Code: O80 - ENCOUNTER FOR FULL-TERM UNCOMPLICATED DELIVERY Status: Acute Current Visit: Yes - Patient Summary/Data Complications: None Consults: None Recommended Follow-up Testing/Procedures: Follow up with Dr. Galeano in 3-6 weeks for check Hospital Course: 26 y/o presented at 39 0/7 wks for IOL due to distance from hospital. This was done with pitocin and AROM. She made good progress to complete dilation and underwent an uncomplicated . See delivery note for full details. she did well and was discharged home on PPD#2 - Patient Instructions Diet: Regular Diet as Tolerated Activity: As Tolerated Activity, Other: Pelvic Rest for 6 weeks Driving: May Drive Today Showering/Bathing: May Shower Showering/Bathing, Other: May Bathe Notify Provider of: Fever, Increased Pain, Swelling and Redness, Drainage, Nausea and/or Vomiting - Discharge Plan Home Medications: Home Meds Docusate Sodium [Colace] 100 mg PO BID PRN cap 05/19/17 [Rx] Ibuprofen [IJD: Ibuprofen] 600 mg PO Q6H PRN tablet 05/19/17 [Rx] Referrals: Svetlana Galeano MD [Primary Care Provider] - (3-6 weeks for check ) - Discharge Summary/Plan Comment DC Time >30 min.: No - Patient Data Vitals - Most Recent: Last Vital Signs Temp 36.7 C 05/20/17 02:22 Pulse 64 05/20/17 02:22 Resp 18 05/20/17 02:22 BP 114/68 05/20/17 02:22 Pulse Ox 98 05/20/17 02:22 Weight - Most Recent: 72.529 kg I&O - Last 24 hours: Intake & Output 05/19/17 05/19/17 05/20/17 14:59 22:59 06:59 Intake Total 240 Balance 240 Med Orders - Current: Current Medications Acetaminophen (Tylenol) 650 mg PO Q4H PRN PRN Reason: mild pain or fever Benzocaine/Menthol (Dermoplast Pain Relief [place]) 0 gm TOP ASDIRECTED PRN PRN Reason: Perineal Comfort Measure Docusate Sodium (Colace) 100 mg PO BID PRN PRN Reason: Constipation Emollient Ointment (Lansinoh Hpa) 0 gm TOP ASDIRECTED PRN PRN Reason: Sore Nipples Ibuprofen (Motrin) 600 mg PO Q6H PRN PRN Reason: Mild pain or fever Last Admin: 05/19/17 19:35 Dose: 600 mg Witch [place] (Tucks) 1 pad TOP ASDIRECTED PRN PRN Reason: Hemorrhoid pain Discontinued Medications Bupivacaine HCl (Sensorcaine-Mpf 0.25%) 10 ml .ROUTE .STK-MED ONE Stop: 05/18/17 22:23 Diphenhydramine HCl (Benadryl) 25 mg IVPUSH Q6H PRN PRN Reason: Pruritis Ephedrine Sulfate (Ephedrine Sulfate) 5 mg IVPUSH ASDIRECTED PRN PRN Reason: Hypotension Fentanyl (Sublimaze) 100 mcg EPIDUR Q3H PRN PRN Reason: Pain Last Admin: 05/18/17 16:32 Dose: 100 mcg Fentanyl/Bupivacaine HCl (Fentanyl/Bupivacaine/Ns 2 Mcg-0.125% 100 Ml) 100 ml EPIDUR ASDIRECTED [facility] Last Admin: 05/18/17 16:33 Dose: 100 ml Ampicillin Sodium 2 gm/ Sodium (Chloride) 100 mls @ 200 mls/hr IV ONETIME ONE Stop: 05/18/17 08:01 Last Admin: 05/18/17 08:21 Dose: 200 mls/hr Ampicillin Sodium 1 gm/ Sodium (Chloride) 100 mls @ 200 mls/hr IV Q4H [facility] Last Admin: 05/18/17 19:33 Dose: 200 mls/hr Lactated Ringer's (Ringers, Lactated) 1,000 mls @ 40 mls/hr IV ASDIRECTED [facility] Last Admin: 05/18/17 19:46 Dose: 40 mls/hr Oxytocin/Lactated Ringer's (Pitocin In Lr 10 Units/1,000 Ml) 10 unit in 1,000 mls @ 12 mls/hr IV TITRATE ISRA; 2 MUNITS/MIN PRN Reason: Protocol Last Titration: 05/18/17 21:26 Dose: 999 mls/hr Oxytocin/Lactated Ringer's (Pitocin In Lr 10 Units/1,000 Ml) 10 unit in 1,000 mls @ 500 mls/hr IV .CONTINUOUS ISRA Nalbuphine HCl (Nubain) 10 mg IVPUSH Q2H PRN PRN Reason: Pain (moderate 4-6) Ondansetron HCl (Zofran) 4 mg IVPUSH Q4H PRN PRN Reason: Nausea/Vomiting Ondansetron HCl (Zofran) 4 mg IVPUSH ONETIME PRN PRN Reason: Nausea/Vomiting Sodium Chloride (Saline Flush) 10 ml FLUSH ASDIRECTED PRN PRN Reason: Keep Vein Open *Q Meaningful Use (DIS) - VTE *Q VTE Criteria *Q: - Stroke *Q Stroke Criteria *Q: - AMI *Q AMI Criteria *Q:
== END 2017-05-20 09:02 | disposition home or self-care (01) | DRG 775 ==
LOC: JD.OB 07:16 → OBSVTOIN 21:26
PROVIDERS: ADMIT Obstetrics & Gynecology; ATTEND Obstetrics & Gynecology
PROC: 10E0XZZ Delivery of Products of Conception, External Approach (ICD-10-PCS; principal; 2017-05-18)
PROC: 3E033VJ Introduction of Other Hormone into Peripheral Vein, Percutaneous Approach (ICD-10-PCS; 2017-05-18)
PROC: 10907ZC Drainage of Amniotic Fluid, Therapeutic from Products of Conception, Via Natural or Artificial Opening (ICD-10-PCS; 2017-05-18)
PROC: 00HU33Z Insertion of Infusion Device into Spinal Canal, Percutaneous Approach (ICD-10-PCS; 2017-05-18)
PROC: 3E0R3BZ Introduction of Anesthetic Agent into Spinal Canal, Percutaneous Approach (ICD-10-PCS; 2017-05-18)
PROC: 3E0234Z Introduction of Serum, Toxoid and Vaccine into Muscle, Percutaneous Approach (ICD-10-PCS; 2017-05-19)
DX: O99.824 Streptococcus B carrier state complicating childbirth (principal); O69.81X0 Labor and delivery complicated by cord around neck, without compression, not applicable or unspecified; Z3A.39 39 weeks gestation of pregnancy; Z37.0 Single live birth; Z23 Encounter for immunization
CPT/HCPCS: 36415; 51702; 59409; 85027; 86850; 86900; 86901; A9270-GY; J0290; J2590; J3010; J7030; J7120